=== PATIENT | female | born 1940 | race Caucasian/White ===

== ENCOUNTER 2016-12-14 07:30 | Day surgery (SDC) | payer OTHER ==
[~2016-12-14] VITALS: Ht 165.1 cm; Wt 84.1 kg
[2016-12-14 07:57] VITALS: BP 142/78; PULSE 71; RESP 20; TEMP 97.7; O2SAT 98
[2016-12-14] MEDS ORDERED: SODIUM CHLOR 0.9% 1000 ML IV SCH (08:15)
[2016-12-14] MEDS ORDERED: HYDR25TA5 PO (08:23)
[2016-12-14] MEDS ORDERED: GABA600T PO (08:23)
[2016-12-14] MEDS ORDERED: LEVO75TA3 PO (08:23)
[2016-12-14] MEDS ORDERED: AMLO10TA2 PO (08:23)
[2016-12-14] MEDS ORDERED: UMEC1AER INH (08:23)
[2016-12-14] MEDS ORDERED: XARE20TA PO (08:23)
[2016-12-14] MEDS ORDERED: LOSA100T PO (08:23)
[2016-12-14] MEDS ORDERED: CLON0.1T PO (08:23)
[2016-12-14 08:32] LABS: AUTOMATED NEUTROPHIL # 2.2 TH/MM3 (1.8-7.7); BASOPHIL % 0.6 % (0.0-2.0); EOSINOPHIL % 0.7 % (0.0-4.0); HEMATOCRIT 36.3 % (35.0-46.0); HEMO FLAGS DIFF FINAL; LYMPH % 25.8 % (9.0-44.0); LYMPHOCYTE # 0.9 TH/MM3 (1.0-4.8); MEAN CELL VOLUME 88.3 FL (80.0-100.0); MEAN CORPUSCULAR HEMOGLOBIN 29.4 PG (27.0-34.0); MEAN CORPUSCULAR HGB CONC 33.4 % (32.0-36.0); MONO % 8.6 % (0.0-8.0); NEUT % 64.3 % (16.0-70.0); PLATELET COUNT 182 TH/MM3 (150-450); RED BLOOD COUNT 4.11 MIL/MM3 (4.00-5.30); RED CELL DISTRIBUTION WIDTH 13.9 % (11.6-17.2); WHITE BLOOD COUNT 3.4 TH/MM3 (4.0-11.0)
[2016-12-14 08:43] LABS: APTT (PATIENT) 26.2 SEC (24.3-30.1); PROTHROMBIN TIME - PATIENT 10.8 SEC (9.8-11.6)
[2016-12-14] MEDS ORDERED: fentaNYL CITRATE 250 MCG/5 ML AMP ONE (08:48)
[2016-12-14] MEDS ORDERED: MIDAZOLAM HCL 5 MG/5 ML VIAL ONE (08:48)
[2016-12-14 09:50] LABS: BONE MARROW PROCESSING COMPLETE; IRON STAIN DONE; JENNER GIEMSA STAIN DONE
[2016-12-14 10:00] VITALS: BP 116/66; PULSE 64; RESP 20; TEMP 97.6; O2SAT 92
[2016-12-14 10:15] VITALS: BP 121/62; PULSE 64; RESP 20; O2SAT 92
[2016-12-14 10:45] VITALS: BP 138/70; PULSE 60; RESP 20; O2SAT 92
[2016-12-14] MEDS ORDERED: oxyCODONE/ACETAMINOPHEN 5 MG/325 MG TAB PO PRN (11:00)
[2016-12-14 11:14] VITALS: BP 141/70; PULSE 60; RESP 20; O2SAT 92
--- NOTE | 2016-12-14 13:36 | RADRPT ---
EXAM DATE/TIME: 12/14/2016 09:19 [place] COMPARISON: No previous studies available for comparison. INDICATIONS : Multiple myeloma. SEDATION TIME: 20 minutes BIOPSY SITE: Right MEDICATION(S): 1.) 4 mg midazolam (Versed) IV 2.) 200 mcg fentanyl (Sublimaze) IV DEVICE(S): 1.) 11 gauge Bone marrow biopsy needle MEDICAL HISTORY : Chronic obstructive pulmonary disease. Hypertension. SURGICAL HISTORY : Hysterectomy. ENCOUNTER: Initial ACUITY: 1 day PAIN SCORE: 0/10 LOCATION: Right A total of one core specimen(s) were obtained and sent to the laboratory for pathologic evaluation. PROCEDURE: 1. CT guided bone marrow biopsy. 2. Conscious sedation with continuous EKG and oximetry monitoring. 3. EKG and oximetry remained stable throughout the procedure. Prior to the procedure informed consent was obtained. Any appropriate prior imaging studies were rev iewed. Using automated exposure control and adjustment of the mA and/or kV according to patient size , radiation dose was kept as low as reasonably achievable to obtain optimal diagnostic quality images . The site was prepped in a sterile fashion. Full sterile technique was used, including cap, mask, pita rile gloves and gown and a large sterile sheet. Hand hygiene and 2% chlorhexidine and/or betadine/al cohol prep was utilized per protocol for cutaneous antisepsis. The skin and subcutaneous tissues wer e infiltrated with local anesthetic solution. With CT guidance the previously identified target was localized. Biopsy was performed using the presc ribed needle as above. Following biopsy marrow aspiration was performed with repeat puncture. [place]qua te hemostasis was obtained with compression at the puncture site. Conscious sedation was performed with the prescribed dosages and duration as above in the presence of an independent trained radiology nurse to assist in the monitoring of the patient. EKG and oximetry remained stable throughout the procedure. The patient tolerated the procedure well and there were no complications. The patient was sent to Radiology Outpatient Unit in stable condition. CONCLUSION: 1. Uncomplicated CT guided bone marrow aspirate. 2. Uncomplicated CT guided bone marrow biopsy. Ignacio Maddox MD on December 14, 2016 at 13:34 Board Certified Radiologist. This report was verified electronically.
== END 2016-12-14 11:55 | disposition home or self-care (01) ==
LOC: HRAD 07:30 → HRIP 07:38 → HRAD 11:55
PROVIDERS: ATTEND Internal Medicine
DX: C90.00 Multiple myeloma not having achieved remission (principal); D72.819 Decreased white blood cell count, unspecified; I10 Essential (primary) hypertension; J44.9 Chronic obstructive pulmonary disease, unspecified
CPT/HCPCS: 38221; 77012; 85025; 85097; 85610; 85730; 88184; 88185; 88237; 88305; 88311; 88313; 88341; 88342; 99152; 99153; C1830; G0364; J2250; J3010; J7030

== ENCOUNTER → 2017-03-19 | Day surgery (SDC) | payer OTHER ==
[~2017-03-19] MED LIST: ACETAMINOPHEN 325 MG TAB ONE; AMLO10TA2 PO; BALANCED SALT SOLN OPHT IRRIG 15 ML BTL ONE; CLON0.1T PO; DEXAMETHASONE SOD PHOS 4 MG/ML VIAL ONE; DEXTROSE 5% IV ONE; EPINEPHrine HCL (1:1000) 1 MG/ML VIAL ONE; GABA600T PO; HYDR25TA5 PO; LACTATED RINGER'S 1000 ML INJ 1,000 ML ONE; LEVO75TA3 PO; LOSA100T PO; MOXIFLOXACIN 0.5% OPHT SOLN 3 ML BTL ONE; ONDANSETRON HCL 4 MG/2 ML VIAL IV PUSH ONE; PHENYLEPHRINE HCL 10% OPTH SOLN 5 ML BTL ONE; PROPOFOL 200 MG/20 ML AMP IV ONE; SODIUM CHLORIDE 0.9% INJ 10 ML ONE; TETRACAINE 0.5% OPTH SOLN 4 ML BTL ONE; TOBRAMYCIN/DEXAMETHASONE OPTH OINT 3.5 GM TUBE ONE; UMEC1AER INH; WATE IV ONE; XARE20TA PO; ceFAZolin INJ 1,000 MG VIAL ONE; prednisoLONE ACETATE 1% OPHT SUSP 5 ML BTL ONE
== END | disposition home or self-care (01) ==
LOC: ESDC 08:52
PROVIDERS: ATTEND Ophthalmology
DX: H35.342 Macular cyst, hole, or pseudohole, left eye (principal)
CPT/HCPCS: 00145; 67043; J0171; J0690; J1100; J2405; J3010; J7060; J7120